=== PATIENT | female | born 1970 | race African-American/Black ===

== ENCOUNTER 2019-01-05 07:51 | Emergency (ER) | payer SELFPAY ==
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
== END 2019-01-05 09:35 | disposition home or self-care (01) ==
LOC: ERS 07:51
DX: S29.012A Strain of muscle and tendon of back wall of thorax, initial encounter (principal); T14.8XXA Other injury of unspecified body region, initial encounter; M54.2 Cervicalgia; M25.561 Pain in right knee; M25.562 Pain in left knee; E11.9 Type 2 diabetes mellitus without complications; I10 Essential (primary) hypertension; Z79.82 Long term (current) use of aspirin; Z79.899 Other long term (current) drug therapy; V43.52XA Car driver injured in collision with other type car in traffic accident, initial encounter
CPT/HCPCS: 72070; 72100; 72125

== ENCOUNTER 2021-04-07 15:54 | Emergency (ER) | payer SELFPAY ==
[2021-04-07] MEDS ORDERED: Boostrix 0.5 ML (Tdap) VIAL ONE (17:17)
[2021-04-07] MEDS ORDERED: Lidocaine 1% PF 5 ML VIAL ONE (17:52)
== END 2021-04-07 18:36 | disposition home or self-care (01) ==
LOC: ERS 15:54
DX: S60.552A Superficial foreign body of left hand, initial encounter (principal); J45.909 Unspecified asthma, uncomplicated; E11.9 Type 2 diabetes mellitus without complications; I10 Essential (primary) hypertension; Z79.82 Long term (current) use of aspirin; W45.8XXA Other foreign body or object entering through skin, initial encounter
CPT/HCPCS: 64450; 90471; 90715

== ENCOUNTER 2023-01-19 10:25 | Emergency (ER) | payer BC, SELFPAY ==
[2023-01-19 11:32] LABS: #Basophils 0.1 thou/uL (0.0-0.2); #Eosinphils 0.1 thou/uL (0.0-0.7); #Lymphocytes 3.1 thou/uL (1.20-3.40); #Monocytes 0.3 thou/uL (0.11-0.59); #Neutrophils 3.2 thou/uL (1.40-6.50); %Eosinophils 0.9 % (0.0-10.0); %Lymphocytes 45.7 % (21.0-51.0); %Monocytes 4.7 % (0.0-10.0); %Neutrophils 47.8 % (42.0-75.0); Hemoglobin 12.2 g/dL (12.0-16.0); Mean Corpuscular HGB CONC 31.8 g/dL (32.0-36.0); Mean Corpuscular Hemoglobin 27.8 pg (27.0-31.0); Mean Corpuscular Volume 87.2 fl (78.0-98.0); Platelet Count 187 10x3/uL (130-400); Red Blood Cell (RBC) Count 4.38 mill/uL (4.20-5.40); White Blood Cell (WBC) Count 6.8 10x3/uL (4.8-10.8)
[2023-01-19 11:55] LABS: ALT (SGPT) 12 U/L (8-55); AST (SGOT) 15 U/L (5-34); Albumin 4.3 g/dL (3.5-5.0); Alkaline Phosphatase 126 U/L (40-110); Anion Gap 12 mmol/L (10-20); BUN (Urea Nitrogen) 11 mg/dL (9.8-20.1); Bilirubin, Total 0.5 mg/dL (0.2-1.2); Calc. Creatinine Clearance 0 mL/min (70-130); Calcium 9.5 mg/dL (7.8-10.44); Carbon Dioxide 27 mmol/L (22-29); Chloride 103 mmol/L (98-107); Estimated GFR 82; Globulin 3.2 g/dL (2.4-3.5); Glucose 314 mg/dL (70-105); Potassium 3.7 mmol/L (3.5-5.1); Protein, Total 7.5 g/dL (6.0-8.3); Sodium 138 mmol/L (136-145)
[2023-01-19] MEDS ORDERED: hydrALAZINE 20 MG/ML VIAL ONE (13:50)
[2023-01-19 14:19] LABS: Bacteria/HPF 4+ HPF (None Seen); Bilirubin Negative (Negative); Blood, Urine Negative (Negative); Clarity Turbid (Clear); Glucose, Urine (Dipstick) Greater than 1000 mg/dL (Negative); Ketone, Urine Negative (Negative); Leukocyte 500 Leu/uL (Negative); Nitrite Negative (Negative); Protein, Urine (Dipstick) 10 mg/dL (Neg-Trace); Specific Gravity, Urine 1.022 (1.002-1.036); Squamous Epithelial None Seen HPF (0-3); Urobilinogen Normal mg/dL (Less than 2); WBC/HPF Greater than 50 HPF (0-3); pH, Urine 5.5 (5.0-9.0)
[2023-01-19] MEDS ORDERED: cefTRIAXone\\ROCEPHIN 2 GM VIAL ONE (16:06)
== END 2023-01-19 17:21 | disposition home or self-care (01) ==
LOC: ERS 10:25
DX: I10 Essential (primary) hypertension (principal); N39.0 Urinary tract infection, site not specified; E11.9 Type 2 diabetes mellitus without complications; Z79.82 Long term (current) use of aspirin
CPT/HCPCS: 36415; 70450; 71045; 80053; 81003; 81015; 84484; 85025; 93005; 96365; 96375; J0360; J0696